=== PATIENT | male | born 1965 | race African-American/Black ===

== ENCOUNTER 2024-01-20 11:07 | Emergency (ER) | payer MEDICAID, OTHER ==
[~2024-01-20] VITALS: Ht 175.3 cm; Wt 75.0 kg
[2024-01-20 11:18] VITALS: O2SAT 98
[2024-01-20] MEDS ORDERED: FUROSEMIDE 40MG/4ML VIAL IV ONE (11:30)
[2024-01-20] MEDS: ASPIRIN 81MG TABLET PO NR (11:55)
[2024-01-20] MEDS: FUROSEMIDE 40MG/4ML VIAL IV NR (11:56)
[2024-01-20 12:02] LABS: BASOPHILS % 0.6 % (0.0-2.0); EOSINOPHILS % 1.6 % (0.0-5.0); HEMATOCRIT. 40.8 % (42.0-52.0); HEMOGLOBIN. 13.2 g/dL (14.0-18.0); LYMPHOCYTES % 15.8 % (20.0-50.0); MEAN CORPUSCULAR HEMOGLOBIN 31.3 pg (28.0-32.0); MEAN CORPUSCULAR HGB CONC 32.4 g/dL (31.0-37.0); MEAN CORPUSCULAR VOLUME 96.4 fL (80.0-94.0); MONOCYTES % 11.2 % (2.0-8.0); NEUTROPHILS % 70.8 % (40.0-76.0); PLATELET 211 x1000/uL (130-400); RED BLOOD CELL COUNT 4.23 mill/uL (4.7-6.1); RED CELL DISTRIBUTION WIDTH 16.9 % (11.6-14.6); WHITE BLOOD COUNT 7.4 x1000/uL (4.5-11.0)
[2024-01-20 12:06] VITALS: TEMP 98
[2024-01-20 12:09] LABS: CHLORIDE 110 mEq/L (98-107); POTASSIUM 3.8 mEq/L (3.5-5.1); SODIUM 140 mEq/L (136-145)
[2024-01-20 12:10] LABS: CARBON DIOXIDE 22 mEq/L (21-32)
[2024-01-20 12:15] LABS: GLUCOSE 80 mg/dL (70-105); UREA NITROGEN BLOOD 17 mg/dL (9-23)
[2024-01-20 12:16] LABS: TROPONIN I HIGH SENSITIVITY 13 ng/L (3.0-53)
[2024-01-20 14:02] LABS: TROPONIN I HIGH SENSITIVITY 13 ng/L (3.0-53)
[2024-01-20 14:38] VITALS: BP 104/75; PULSE 97; RESP 20
== END 2024-01-20 17:20 | disposition short-term general hospital (02) ==
LOC: ER 13:24 → CANBEDREQ 13:32 → ER 17:20
DX: I44.4 Left anterior fascicular block (principal); I11.0 Hypertensive heart disease with heart failure; I50.9 Heart failure, unspecified; Z88.0 Allergy status to penicillin; Z98.890 Other specified postprocedural states
CPT/HCPCS: 80048; 83880; 85025; 84484; 36415; 71045; 93005; 96374; 99285; Z7610 ×3; J1940